=== PATIENT | female | born 1960 | race Hispanic/Latino ===

== ENCOUNTER → 2018-06-27 | Outpatient (CLI) | payer BC ==
[~2018-06-27] MED LIST: GADODIAMIDE 10 MMOL/20 ML ML IV ONE
== END | disposition home or self-care (01) ==
LOC: RAH 08:42
PROVIDERS: ATTEND Internal Medicine
DX: D35.02 Benign neoplasm of left adrenal gland (principal)
CPT/HCPCS: 74183; A9579

== ENCOUNTER → 2020-11-25 | Outpatient (CLI) | payer BC ==
[~2020-11-25] MED LIST changes: -GADODIAMIDE 10 MMOL/20 ML ML IV ONE; +GADOTERATE MEGLUMINE 10 MMOL/20 ML VIAL IV ONE
== END | disposition home or self-care (01) ==
LOC: RAH 09:07
PROVIDERS: ATTEND Internal Medicine
DX: D35.2 Benign neoplasm of pituitary gland (principal); D35.02 Benign neoplasm of left adrenal gland
CPT/HCPCS: 74183; A9575

== ENCOUNTER 2022-10-06 22:57 | Emergency (ER) | payer BC ==
[~2022-10-06] VITALS: Ht 157.5 cm; Wt 147.9 kg
[2022-10-07 00:47] LABS: BASOPHILS % (AUTO) 0.4 % (0.0-5.0); EOSINOPHILS % (AUTO) 2.4 % (0.0-8.0); HEMATOCRIT 39.3 % (36-48); LYMPHOCYTES % (AUTO) 23.4 % (21.0-51.0); MEAN CORPUSCULAR HEMOGLOBIN 30.1 pg (27.0-33.0); MEAN CORPUSCULAR HGB CONC 32.6 g/dL (32.0-36.0); MEAN CORPUSCULAR VOLUME 92.5 fL (79-99); MONOCYTES % (AUTO) 11.3 % (3.0-13.0); NEUTROPHILS % (AUTO) 62.1 % (40.0-77.0); PLATELET COUNT (AUTO) 181 K/uL (130-400); RED BLOOD CELL COUNT(AUTO) 4.25 MIL/uL (4.00-5.50); RED CELL DISTRIBUTION WIDTH 13.7 % (11.0-15.5); WHITE BLOOD COUNT (AUTO) 6.7 K/uL (4.8-10.8)
[2022-10-07 00:59] LABS: CREATININE 0.7 mg/dL (0.5-1.5); POTASSIUM 3.8 mmol/L (3.5-5.1); PROTHROMBIN TIME 10.9 SEC (9.6-11.6)
[2022-10-07 01:04] LABS: TOTAL PROTEIN, SERUM 6.8 g/dL (6.0-8.3)
[2022-10-07] MEDS ORDERED: CEFTRIAXONE 1G VIAL IVP ONE (01:30)
[2022-10-07 01:35] LABS: B-TYPE NATRIURETIC PEPTIDE 27 pg/mL (0-100)
[2022-10-07] MEDS ORDERED: CEFU500T67 PO (01:45)
[2022-10-07 03:12] VITALS: BP 120/64
== END 2022-10-07 03:13 | disposition home or self-care (01) ==
LOC: EDH 22:57
DX: L03.115 Cellulitis of right lower limb (principal); E78.00 Pure hypercholesterolemia, unspecified; Z79.899 Other long term (current) drug therapy
CPT/HCPCS: 99284; 96374; 93971; 84484; 80053; 83880; 85025; 85610; 36415; 93005; J0696

== ENCOUNTER → 2023-04-26 | Outpatient (CLI) | payer BC ==
[~2023-04-26] MED LIST changes: +CEFU500T67 PO; -GADOTERATE MEGLUMINE 10 MMOL/20 ML VIAL IV ONE
[2023-04-26 12:25] LABS: CREATININE 0.7 mg/dL (0.5-1.5)
== END | disposition home or self-care (01) ==
LOC: LAB 08:33
PROVIDERS: ATTEND Internal Medicine
DX: I10 Essential (primary) hypertension (principal)
CPT/HCPCS: 36415; 80048

== ENCOUNTER → 2023-05-18 | Outpatient (CLI) | payer BC ==
[~2023-05-18] MED LIST changes: +IOHEXOL 350 MG/ML 100ML INFUS..BTL IV ONE
== END | disposition home or self-care (01) ==
LOC: RAH 07:40
PROVIDERS: ATTEND Internal Medicine
DX: R94.31 Abnormal electrocardiogram [ECG] [EKG] (principal); I51.7 Cardiomegaly; M47.815 Spondylosis without myelopathy or radiculopathy, thoracolumbar region; R06.02 Shortness of breath
CPT/HCPCS: 75574; Q9967

== ENCOUNTER → 2023-05-30 | Outpatient (CLI) | payer BC ==
[~2023-05-30] MED LIST changes: -IOHEXOL 350 MG/ML 100ML INFUS..BTL IV ONE
== END | disposition home or self-care (01) ==
LOC: SHCH 14:30
PROVIDERS: ATTEND Internal Medicine
DX: I35.8 Other nonrheumatic aortic valve disorders (principal); I11.9 Hypertensive heart disease without heart failure; R06.02 Shortness of breath; E78.5 Hyperlipidemia, unspecified
CPT/HCPCS: 93306

== ENCOUNTER → 2023-07-15 | Outpatient (CLI) | payer BC | END | disposition home or self-care (01) | LOC: SHCH 07:37 | PROVIDERS: ATTEND Internal Medicine | DX: I87.2 Venous insufficiency (chronic) (peripheral) (principal) | CPT/HCPCS: 93970 ==

== ENCOUNTER → 2023-11-23 | Outpatient (CLI) | payer BC ==
[2023-11-23 12:07] LABS: BASOPHILS # (AUTO) 0.02 K/uL (0.00-0.20); BASOPHILS % (AUTO) 0.4 % (0.0-5.0); EOSINOPHILS # (AUTO) 0.21 K/uL (0.00-0.70); EOSINOPHILS % (AUTO) 4.7 % (0.0-8.0); HEMATOCRIT 42.5 % (36-48); IMMATURE GRANULOCYTE ABSOLUTE 0.01 K/uL (0-1); LYMPHOCYTES # (AUTO) 1.7 K/uL (1.0-4.8); LYMPHOCYTES % (AUTO) 38.6 % (21.0-51.0); MEAN CORPUSCULAR HEMOGLOBIN 31.8 pg (27.0-33.0); MEAN CORPUSCULAR HGB CONC 33.4 g/dL (32.0-36.0); MEAN CORPUSCULAR VOLUME 95.1 fL (79-99); MONOCYTES # (AUTO) 0.4 K/uL (0.1-1.0); MONOCYTES % (AUTO) 9.3 % (3.0-13.0); NEUTROPHILS # (AUTO) 2.1 K/uL (1.8-7.7); NEUTROPHILS % (AUTO) 46.8 % (40.0-77.0); PLATELET COUNT (AUTO) 169 K/uL (130-400); RED BLOOD CELL COUNT(AUTO) 4.47 MIL/uL (4.00-5.50); RED CELL DISTRIBUTION WIDTH 14.2 % (11.0-15.5); WHITE BLOOD COUNT (AUTO) 4.5 K/uL (4.8-10.8)
[2023-11-23 12:13] LABS: CREATININE 0.6 mg/dL (0.5-1.0); POTASSIUM 3.8 mmol/L (3.5-5.1)
[2023-11-23 12:22] LABS: INR 0.98 (0.85-1.15); PROTHROMBIN TIME 11.6 SEC (9.6-11.6)
[2023-11-23 12:23] LABS: PARTIAL THROMBOPLASTIN TIME 27.7 SEC (26.3-35.5)
== END | disposition home or self-care (01) ==
LOC: LAB 08:07
PROVIDERS: ATTEND Internal Medicine Cardiovascular Disease
DX: Z01.812 Encounter for preprocedural laboratory examination (principal); I87.1 Compression of vein; I87.2 Venous insufficiency (chronic) (peripheral)
CPT/HCPCS: 36415; 80048; 85025; 85610; 85730

== ENCOUNTER 2023-12-10 16:55 | Emergency (ER) | payer BC ==
[~2023-12-10] VITALS: Ht 154.9 cm; Wt 141.5 kg
[2023-12-10 18:11] LABS: BASOPHILS # (AUTO) 0.03 K/uL (0.00-0.20); BASOPHILS % (AUTO) 0.7 % (0.0-5.0); EOSINOPHILS # (AUTO) 0.17 K/uL (0.00-0.70); IMMATURE GRANULOCYTE ABSOLUTE 0.01 K/uL (0-1); LYMPHOCYTES # (AUTO) 1.6 K/uL (1.0-4.8); LYMPHOCYTES % (AUTO) 37.2 % (21.0-51.0); MEAN CORPUSCULAR HEMOGLOBIN 32.8 pg (27.0-33.0); MEAN CORPUSCULAR HGB CONC 33.8 g/dL (32.0-36.0); MEAN CORPUSCULAR VOLUME 96.8 fL (79-99); MONOCYTES # (AUTO) 0.5 K/uL (0.1-1.0); MONOCYTES % (AUTO) 10.5 % (3.0-13.0); NEUTROPHILS % (AUTO) 47.4 % (40.0-77.0); PLATELET COUNT (AUTO) 136 K/uL (130-400); RED BLOOD CELL COUNT(AUTO) 4.03 MIL/uL (4.00-5.50); RED CELL DISTRIBUTION WIDTH 14.1 % (11.0-15.5); WHITE BLOOD COUNT (AUTO) 4.3 K/uL (4.8-10.8)
[2023-12-10 18:34] LABS: ALBUMIN 2.9 g/dL (3.5-5.0); BILIRUBIN,TOTAL 1.3 mg/dL (0.2-1.0); CREATININE 0.7 mg/dL (0.5-1.0); POTASSIUM 4.3 mmol/L (3.5-5.1); TOTAL PROTEIN, SERUM 6.8 g/dL (6.0-8.3)
[2023-12-10 18:46] LABS: INR 0.96 (0.85-1.15); PROTHROMBIN TIME 11.4 SEC (9.6-11.6)
[2023-12-10 18:47] LABS: PARTIAL THROMBOPLASTIN TIME 27.3 SEC (26.3-35.5)
[2023-12-10 20:55] VITALS: BP 112/67; PULSE 69; RESP 16; O2SAT 99
== END 2023-12-10 21:07 | disposition home or self-care (01) ==
LOC: EDH 16:55
DX: S70.12XA Contusion of left thigh, initial encounter (principal); S30.1XXA Contusion of abdominal wall, initial encounter; E78.00 Pure hypercholesterolemia, unspecified; I10 Essential (primary) hypertension; X58.XXXA Exposure to other specified factors, initial encounter; Y93.89 Activity, other specified; Y92.89 Other specified places as the place of occurrence of the external cause; Y99.8 Other external cause status
CPT/HCPCS: 36415; 76882; 80053; 85025; 85610; 85730

== ENCOUNTER 2024-06-19 07:01 | Observation (INO) | payer BC ==
[2024-06-15 15:42] LABS: BASOPHILS # (AUTO) 0.03 K/uL (0.00-0.20); BASOPHILS % (AUTO) 0.7 % (0.0-5.0); EOSINOPHILS # (AUTO) 0.24 K/uL (0.00-0.70); EOSINOPHILS % (AUTO) 5.4 % (0.0-8.0); HEMATOCRIT 40.2 % (36-48); IMMATURE GRANULOCYTE ABSOLUTE 0.01 K/uL (0-1); LYMPHOCYTES # (AUTO) 1.4 K/uL (1.0-4.8); LYMPHOCYTES % (AUTO) 31.9 % (21.0-51.0); MEAN CORPUSCULAR HEMOGLOBIN 31.5 pg (27.0-33.0); MEAN CORPUSCULAR HGB CONC 33.1 g/dL (32.0-36.0); MEAN CORPUSCULAR VOLUME 95.3 fL (79-99); MONOCYTES # (AUTO) 0.5 K/uL (0.1-1.0); MONOCYTES % (AUTO) 10.6 % (3.0-13.0); NEUTROPHILS # (AUTO) 2.3 K/uL (1.8-7.7); NEUTROPHILS % (AUTO) 51.2 % (40.0-77.0); PLATELET COUNT (AUTO) 166 K/uL (130-400); RED BLOOD CELL COUNT(AUTO) 4.22 MIL/uL (4.00-5.50); RED CELL DISTRIBUTION WIDTH 14.1 % (11.0-15.5); WHITE BLOOD COUNT (AUTO) 4.4 K/uL (4.8-10.8)
[2024-06-15 15:54] LABS: CREATININE 0.6 mg/dL (0.5-1.0); POTASSIUM 3.8 mmol/L (3.5-5.1)
[2024-06-15 16:11] VITALS: BP 157/73; PULSE 58; RESP 16; TEMP 97.9
[2024-06-15 16:24] LABS: APPEARANCE,URINE CLEAR (CLEAR); BILIRUBIN,URINE NEGATIVE (NEGATIVE); COLOR,URINE YELLOW (YELLOW); GLUCOSE, URINE (UA) NEGATIVE (NEGATIVE); KETONES,URINE NEGATIVE (NEGATIVE); LEUKOCYTE ESTERASE ,URINE NEGATIVE Leu/uL (NEGATIVE); NITRATE,URINE NEGATIVE (NEGATIVE); OCCULT BLOOD,URINE NEGATIVE (NEGATIVE); PH,URINE 8.5 (5.0-8.0); PROTEIN,URINE NEGATIVE (NEGATIVE); UROBILINOGEN,URINE >=8.0 mg/dL (0.2-1.0)
[2024-06-15 16:26] LABS: ADD UA MICROSCOPIC NO
[2024-06-19] VITALS (27 sets, daily range): BP systolic 117–136; BP diastolic 57–84; PULSE 52–71; RESP 15–21; TEMP 97.4–98.4; O2SAT 97–99
[~2024-06-19] VITALS: Ht 157.5 cm; Wt 145.6 kg
[~2024-06-19 07:01] MED LIST changes: +ALBU18HF7 IH; -CEFU500T67 PO; +CETI10TA57 PO; +DICL100G60 TP; +FERR-82 PO; +FURO20TA4 PO; +MELO5CAP3 PO; +SIMV10TA97 PO; +STOOL SOFTENER PO
[2024-06-19] MEDS: ceFAZolin SODIUM 2 GM VIAL ONE (07:40)
[2024-06-19] MEDS: ceFAZolin SODIUM 1 GM VIAL ONE ×2 (07:40→11:10)
[2024-06-19] MEDS: LACTATED RINGERS 1000ML 1,000 ML IV ONE (07:40)
[2024-06-19] MEDS ORDERED: ASPI-1197 PO (07:45)
[2024-06-19] MEDS ORDERED: GLYCOPYRROLATE 0.2 MG/ML 5 ML VIAL ONE (08:52)
[2024-06-19] MEDS ORDERED: phenylEPHRINE HCL 10 MG/ML 1ML VIAL IV ONE (08:52)
[2024-06-19] MEDS ORDERED: proPOFol 10 MG/ML 20ML VIAL IV ONE (08:52)
[2024-06-19] MEDS ORDERED: NEOSTIGMINE METHYLSULFATE 1MG/ML IV ONE (08:52)
[2024-06-19] MEDS ORDERED: MIDAZOLAM HCL 1 MG/ML 2ML VIAL ONE (08:52)
[2024-06-19] MEDS ORDERED: ondanSETRON 4MG INJ ONE (08:52)
[2024-06-19] MEDS ORDERED: LIDOCAINE PF 100MG/5ML (2%) SYRINGE 5ML ONE (08:53)
[2024-06-19] MEDS ORDERED: FENTanyl CITRate PF 50 MCG/1 ML 2ML VIAL ONE ×2 (08:53→12:15)
[2024-06-19] MEDS ORDERED: rocuRONium bROMide 10MG/1ML 5ML VL ONE ×2 (08:53→11:14)
[2024-06-19] MEDS: TRANEXAMIC ACID 1000MG/10ML ONE (10:45)
[2024-06-19] MEDS ORDERED: VANCOMYCIN 1G/250ML KIT 250 ML IV ONE (11:03)
[2024-06-19] MEDS: VANCOMYCIN 1G VIAL TP ONE (11:10)
[2024-06-19] MEDS ORDERED: ePHEDrine SULFate 50 MG/ML AMPULE ONE (11:22)
[2024-06-19] MEDS ORDERED: PoTASSium chloRIDE 20MEQ ER 20 MEQ ERTAB PO PRN (13:00)
[2024-06-19] MEDS ORDERED: HYDROcodone/APAP 5/325 1 TAB TABLET PO PRN (13:00)
[2024-06-19] MEDS ORDERED: FERROUS FUMARATE 324 MG TABLET PO PRN (13:00)
[2024-06-19] MEDS ORDERED: DiphenhydrAMINE HCL 50 MG/ML VIAL IVP PRN (13:00)
[2024-06-19] MEDS ORDERED: CALCIUM CARB 500MG PO PRN (13:00)
[2024-06-19] MEDS ORDERED: ketOROlac 15MG/ML VIAL (15MG/ML) IV PRN (13:00)
[2024-06-19] MEDS: 0.9%NACL 1000ML 1,000 ML IV SCH (13:00)
[2024-06-19] MEDS ORDERED: PoTASSium chl 10% ELIXIR 20MEQ 20 MEQ/15 ML UDCUP PO PRN (13:00)
[2024-06-19] MEDS ORDERED: PoTASSium chloRIDE 20MEQ/100ML 100 ML IV PRN (13:00)
--- NOTE | 2024-06-19 13:03 | OP ---
Operative Note: DATE OF PROCEDURE: 06/19/24 SURGEON: BETHANY CASTRO MD FUEL BUYER: [CHAS YARBROUGH CFA] ANESTHESIA: [GENERAL ANESTHESIA PLUS REGIONAL BLOCK] ANESTHESIOLOGIST/FEATURE WRITER: [NETTIE DINERO CRNA] PREOPERATIVE DIAGNOSIS: [RIGHT KNEE OSTEOARTHRITIS] POSTOPERATIVE DIAGNOSIS: [RIGHT KNEE OSTEOARTHRITIS] IMPLANTS: [BIOMET VANGUARD. FEMUR SIZE 62.5 RIGHT PS. TIBIA SIZE 71 FIXED CRUCIATE. TIBIAL LINER SIZE 71/75 X 10. PATELLA SIZE 31 X 8, ASYMMETRIC.] PROCEDURE: [RIGHT TOTAL KNEE ARTHROPLASTY] ESTIMATED BLOOD LOSS: [100 ML] INDICATIONS: [THE PATIENT IS A 63-YEAR-OLD FEMALE, MORBIDLY OBESE WITH HISTORY OF PAIN TO THE RIGHT KNEE SECONDARY TO OSTEOARTHRITIS THAT HAS A LONGER RESPONDED TO CONSERVATIVE TREATMENT THE PATIENT HAS BEEN BROUGHT TO THE OPERATING ROOM FOR A RIGHT TOTAL KNEE ARTHROPLASTY. PROCEDURE UNDERSTOOD, RISKS, BENEFITS AND POSSIBLE COMPLICATIONS AND THE PATIENT AGREED SIGNED THE CONSENT FORM] DESCRIPTION OF PROCEDURE: [AFTER ADEQUATE GENERAL ANESTHESIA WAS ACHIEVED AND REGIONAL BLOCK OBTAINED THE RIGHT LOWER EXTREMITY WAS PREPPED AND DRAPED IN THE USUAL MANNER PREVIOUS PLACEMENT OF THE TOURNIQUET IN THE PROXIMAL THIGH. THE EXTREMITY WAS THEN ELEVATED AND EXSANGUINATED WITH AN ESMARCH BANDAGE AND THE TOURNIQUET INFLATED TO 250 MMHG THE ESMARCH BAND BEEN THEN REMOVED. WITH THE KNEE IN FLEXION A LONGITUDINAL INCISION WAS THEN MADE IN THE ANTERIOR ASPECT THROUGH THE SKIN FOLLOWED BY DISSECTION OF THE SUBCUTANEOUS TISSUE. MEDIAL TO THE TIBIAL TUBEROSITY WE PROCEEDED THEN TO INSERT A BONE INFUSION NEEDLE INTO THE PROXIMAL METAPHYSIS AND THEN 60 MM OF A MIXTURE OF SALINE WITH 500 MG OF VANCOMYCIN WAS INJECTED. THE NEEDLE WAS THEN REMOVED. A PARAMEDIAN APPROACH WAS THEN MADE WITH THE BOVIE CAUTERY CUTTING THROUGH THE QUADRICEPS TENDON, MEDIAL PATELLAR RETINACULUM AND PATELLAR TENDON RETINACULUM. THE RETROPATELLAR TENDON FAT WAS THEN EXCISED AND THE SOFT TISSUE ELEMENTS OF THE TIBIA WERE ELEVATED SUBPERIOSTEALLY AND RETRACTORS WERE APPLIED MEDIALLY AND LATERALLY . THE ANTERIOR AND POSTERIOR CRUCIATE LIGAMENTS WERE RESECTED. WITH THE USE OF A DRILL A STARTING HOLE WAS MADE IN THE DISTAL FEMUR ENTERING THE INTRAMEDULLARY CANAL AND THEN AFTER REMOVAL OF THE DRILL AN INTRAMEDULLARY GUIDE WAS INSERTED WITH A 5 DEGREE VALGUS BLOCK THAT TOUCHED THE DISTAL FEMUR AND TO THIS THE DISTAL FEMORAL CUTTING GUIDE WAS THEN APPLIED ANTERIORLY AND WAS SECURED TO THE DISTAL FEMUR WITH THE USE OF PINS. THE INTRAMEDULLARY GUIDE WAS THEN REMOVED AND WITH THE USE OF THE OSCILLATING SAW WE PROCEEDED TO RESECT THE DISTAL FEMUR REMOVING THE FRAGMENTS AND THE GUIDE. THE FEMORAL SIZER WAS THEN APPLIED DISTAL LY AND DRILL HOLES WERE MADE REMOVING THE SIZER AND THE 4-IN-1 CUTTING BLOCK WAS THEN INSERTED AND THE ANTERIOR, POSTERIOR AND CHAMFER CUTS WERE MADE REMOVING THE FRAGMENTS AND THE BLOCK. THE POSTERIOR CRUCIATE LIGAMENT RETRACTOR WAS THEN INSERTED POSTERIOR TO THE TIBIA AND THIS WAS BROUGHT FORWARD PROCEEDING THEN TO APPLY THE EXTERNAL TIBIAL ALIGNMENT GUIDE AND SECURED THE PROXIMAL CUTTING GUIDE TO THE TIBIA WITH THE USE OF PINS. WITH THE USE OF THE OSCILLATING SAW THE PROXIMAL CUT TO THE TIBIA TIBIA WAS MADE. THE BONE FRAGMENT WAS REMOVED AND THE TRIAL TIBIA PLATE WAS CHOSEN. AT THIS POINT THE MENISCI WERE REMOVED SHARPLY AND WITH THE USE OF THE CURVED OSTEOTOME THE POSTERIOR OSTEOPHYTES OF THE FEMUR WERE REMOVED. THE PS CUTTING GUIDE WAS THEN INSERTED AND THE INTERCONDYLAR CUT WAS MADE REMOVING THE FRAGMENT AND THE GUIDE. THE TRIAL COMPONENTS WERE THEN INSERTED AT THE FEMUR AND TIBIA WITH A TRIAL TIBIAL LINER BRINGING THE KNEE INTO EXTENSION NOTICING THAT THE PATIENT HAD A VERY STABLE KNEE IN FLEXION, EXTENSION AND WITH VALGUS AND VARUS STRESS. THE KNEE WAS MAINTAINED IN EXTENSION AND THE PATELLA WAS THEN ADDRESSED PROCEEDING TO MEASURE ITS THICKNESS AND THEN WITH THE USE OF THE OSCILLATING SAW WE REMOVED EIGHT MM FROM THE ARTICULAR SURFACE AND RESTORED THE HEIGHT WITH APPLICATION OF A TRIAL COMPONENT AFTER 3 PEG HOLES WERE MADE. THE PATELLOFEMORAL LIGAMENT WAS REMOVED AND THEN THE PATELLOFEMORAL TRACKING WAS CHECKED NOTICING TO BE NORMAL. AT THIS MOMENT ALL THE COMPONENTS WERE REMOVED, THE TIBIA AFTER THE METAPHYSEAL DEFECT WAS CREATED AND WHILE CEMENT WAS BEING MIXED ON THE BACK TABLE WE PROCEEDED TO IRRIGATE THE JOINT WITH ANTIBIOTIC SOLUTION AND THEN COVER THE ENTRY TO THE FEMORAL CANAL WITH A BONE PLUG. ONCE THE CEMENT WAS READY WE PROCEEDED TO APPLY IT FIRST TO THE TIBIA SURFACE INSERTING THE FINAL COMPONENT AND THEN TO THE FEMORAL SURFACE AND INSERTED THE FINAL COMPONENT REMOVING THE EXCESS CEMENT AND THEN APPLYING A TRIAL LINER BRINGING THE KNEE INTO EXTENSION FOR COMPRESSION. THEN WE PROCEEDED TO IRRIGATE THE PATELLA SURFACE AND DRIED IT APPLYING THEN BONE CEMENT AND THE FINAL PATELLAR COMPONENT WAS INSERTED AND WAS SECURED WITH APPLICATION OF A CLAMP. THE JOINT WAS IRRIGATED WITH A WARM DILUTED BETADINE SOLUTION WHILE THE CEMENT DRIED FOLLOWED BY IRRIGATION WITH ANTIBIOTIC SOLUTION. THE TRIAL LINER WAS REMOVED WELL THE PATELLAR CLAMP AND WE PROCEEDED THEN TO IRRIGATE THE POSTERIOR ASPECT OF THE JOINT TO REMOVE ALL THE REMAINING DEBRIS AND THE FINAL TIBIAL LINER WAS INSERTED AND LOCKED AGAINST THE TIBIA . THE RANGE OF MOTION WAS CHECKED AND NOTICED TO BE ADEQUATE WITH FULL EXTENSION AND FLEXION, NO LAXITY IN VALGUS OR VARUS STRESS AND WITH ADEQUATE PATELLOFEMORAL TRACKING. THE PATIENT HAD NO ANTERIOR OR POSTERIOR DRAWER. AFTER FURTHER IRRIGATION THE WOUND WAS THEN CLOSED WITH APPROXIMATION OF THE QUADRICEPS TENDON, PATELLAR RETINACULUM AND PATELLAR TENDON RETINACULUM WITH #1 VICRYL CLOSE STITCHES ALTERNATING WITH #1 ETHIBOND STITCHES. THE TOURNIQUET WAS THEN DEFLATED AND THIS WAS FOLLOWED BY HEMOSTASIS AND CLOSURE OF THE SUBCUTANEOUS TISSUE WITH 2-0 MONOCRYL INVERTED STITCHES AND THE SKIN WAS CLOSED WITH 3-0 MONOCRYL SUBCUTICULARLY. THE WOUND WAS COVERED WITH A SUCTION DRESSING FOLLOWED BY APPLICATION OF AN GILMAR BANDAGE FOR COMPRESSION AND THE DRAPES WERE THEN REMOVED TRANSFERRING THE PATIENT TO THE HOSPITAL BED AND TAKEN TO RECOVERY ROOM FOR FOLLOW-UP BY ANESTHESIA. THERE WERE NO COMPLICATIONS DURING THE PROCEDURE.] BETHANY CASTRO MD Jun 19, 2024 13:03
[2024-06-19] MEDS: MEPERIDINE-PF 25 MG/ML SYG ONE (13:54)
[2024-06-19] MEDS: acetaMINOPHEN 100 ML ONE (14:03)
[2024-06-19] MEDS: ondanSETRON 4MG INJ IVP PRN (16:47)
[2024-06-19] MEDS: ceFAZolin SODIUM 2 GM VIAL IVP SCH (18:03)
[2024-06-19] MEDS: HYDROcodone/APAP 5/325 1 TAB TABLET PO PRN (18:42)
[2024-06-19] MEDS: FAMOTIDINE 20MG TAB PO SCH (21:26)
[2024-06-19] MEDS: furoSEMIDE 20 MG TABLET PO SCH (21:26)
[2024-06-19] MEDS: FERROUS SULFATE 325 MG TABLET.DR PO SCH (21:26)
[2024-06-19] MEDS: simVASTatin 10 MG TABLET PO SCH (21:26)
[2024-06-19] MEDS: ALBUTEROL SULFATE IH PRN (21:28)
[2024-06-20] VITALS: BP 117/51; PULSE 67; RESP 19; TEMP 98.6
[2024-06-20] MEDS: HYDROcodone/APAP 5/325 1 TAB TABLET PO PRN (03:54)
[2024-06-20 04:00] VITALS: BP 118/55; PULSE 55; RESP 16; TEMP 98.2
[2024-06-20 05:42] LABS: HEMATOCRIT 37.7 % (36-48); MEAN CORPUSCULAR HEMOGLOBIN 30.4 pg (27.0-33.0); MEAN CORPUSCULAR HGB CONC 32.1 g/dL (32.0-36.0); MEAN CORPUSCULAR VOLUME 94.7 fL (79-99); RED BLOOD CELL COUNT(AUTO) 3.98 MIL/uL (4.00-5.50); RED CELL DISTRIBUTION WIDTH 13.9 % (11.0-15.5); WHITE BLOOD COUNT (AUTO) 7.2 K/uL (4.8-10.8)
[2024-06-20 07:30] VITALS: BP 131/45; PULSE 61; RESP 20; TEMP 98
--- NOTE | 2024-06-20 07:49 | PN ---
Ortho postop day one. Patient is out of bed seated in a chair. Reports adequate pain control. Vital signs stable. Afebrile. Voiding on her own without difficulty. Laboratory results reviewed. Performing incentive spirometry as instructed. Tello dressing intact. Operative findings discussed with the patient. Pending physical therapy this morning. Anticipated discharge goal is home health/PT preferably [facility]. Assessment: Status post right total knee arthroplasty. Plan: Continue with Dr. Venegas TKA protocol and discharge planning. Vitals/Labs Vital Signs Date Time Temp Pulse Resp B/P (MAP) Pulse Ox O2 Delivery O2 Flow Rate FiO2 06/20/24 04:00 98.2 55 16 118/55 99 06/19/24 20:25 Nasal Cannula 2.0 24 Laboratory Tests 06/20/24 04:40 Medications Current Medications Cefazolin Sodium 1 gm STK-MED ONCE .ROUTE Last administered on 06/19/24at 10:39; Start 06/19/24 at 06:50; Stop 06/19/24 at 06:50; Status DC Cefazolin Sodium 2 gm STK-MED ONCE .ROUTE Last administered on 06/19/24at 10:39; Start 06/19/24 at 06:50; Stop 06/19/24 at 06:50; Status DC Lactated Ringer's 1,000 ml @ As Directed STK-MED ONCE IV Last administered on 06/19/24at 07:40; Start 06/19/24 at 06:50; Stop 06/19/24 at 06:50; Status DC Cefazolin Sodium 1 gm STK-MED ONCE .ROUTE Last administered on 06/19/24at 11:10; Start 06/19/24 at 07:43; Stop 06/19/24 at 07:43; Status DC Tranexamic Acid 1,000 mg STK-MED ONCE .ROUTE Last administered on 06/19/24at 10:45; Start 06/19/24 at 07:44; Stop 06/19/24 at 07:44; Status DC Glycopyrrolate 1 mg STK-MED ONCE .ROUTE; Start 06/19/24 at 08:52; Stop 06/19/24 at 08:52; Status DC Midazolam HCl 2 mg STK-MED ONCE .ROUTE; Start 06/19/24 at 08:52; Stop 06/19/24 at 08:52; Status DC Propofol 200 mg STK-MED ONCE IV; Start 06/19/24 at 08:52; Stop 06/19/24 at 08:52; Status DC Neostigmine Methylsulfate 10 mg STK-MED ONCE IV; Start 06/19/24 at 08:52; Stop 06/19/24 at 08:52; Status DC Phenylephrine HCl 10 mg STK-MED ONCE IV; Start 06/19/24 at 08:52; Stop 06/19/24 at 08:53; Status DC Ondansetron HCl 4 mg STK-MED ONCE .ROUTE; Start 06/19/24 at 08:52; Stop 06/19/24 at 08:53; Status DC Rocuronium [place] 50 mg STK-MED ONCE .ROUTE; Start 06/19/24 at 08:53; Stop 06/19/24 at 08:53; Status DC Fentanyl Citrate 100 mcg STK-MED ONCE .ROUTE; Start 06/19/24 at 08:53; Stop 06/19/24 at 08:53; Status DC Lidocaine HCl 100 mg STK-MED ONCE .ROUTE; Start 06/19/24 at 08:53; Stop 06/19/24 at 08:54; Status DC Vancomycin HCl 250 ml @ As Directed STK-MED ONCE IV; Start 06/19/24 at 11:03; Stop 06/19/24 at 11:04; Status DC Rocuronium [place] 50 mg STK-MED ONCE .ROUTE; Start 06/19/24 at 11:14; Stop 06/19/24 at 11:14; Status DC Ephedrine Sulfate 50 mg STK-MED ONCE .ROUTE; Start 06/19/24 at 11:22; Stop 06/19/24 at 11:22; Status DC Vancomycin HCl 1 gm STK-MED ONCE TP Last administered on 06/19/24at 11:10; Start 06/19/24 at 11:10; Stop 06/19/24 at 11:42; Status DC Fentanyl Citrate 100 mcg STK-MED ONCE .ROUTE; Start 06/19/24 at 12:15; Stop 06/19/24 at 12:15; Status DC Sodium Chloride 1,000 ml @ 100 mls/hr Q10H IV Last administered on 06/19/24at 13:00; Start 06/19/24 at 13:00; Stop 06/20/24 at 12:59 Polyethylene Glycol 17 gm DAILY PO; Start 06/20/24 at 09:00; Stop 07/20/24 at 08:59 Bisacodyl 10 mg DAILY PRN RC; Start 06/22/24 at 13:00; Stop 07/22/24 at 12:59 Ketorolac Tromethamine 15 mg Q6H PRN IV; Start 06/19/24 at 13:00; Stop 06/24/24 at 12:59 Famotidine 20 mg BID PO Last administered on 06/19/24at 21:26; Start 06/19/24 at 21:00; Stop 07/19/24 at 20:59 Ferrous Fumarate 324 mg DAILY PRN PO; Start 06/19/24 at 13:00; Stop 07/19/24 at 12:59 Ondansetron HCl 4 mg Q6H PRN IVP Last administered on 06/19/24at 16:47; Start 06/19/24 at 13:00; Stop 07/19/24 at 12:59 Calcium Carbonate 500 mg Q12H PRN PO; Start 06/19/24 at 13:00; Stop 07/19/24 at 12:59 Diphenhydramine HCl 25 mg Q6H PRN IVP; Start 06/19/24 at 13:00; Stop 07/19/24 at 12:59 Cefazolin Sodium 2 gm Q8H IVP Last administered on 06/20/24at 02:49; Start 06/19/24 at 18:00; Stop 06/20/24 at 02:01; Status DC Potassium Chloride 100 ml @ 100 mls/hr AD PRN IV; Start 06/19/24 at 13:00; Stop 07/19/24 at 12:59 Potassium Chloride 20 meq AD PRN PO; Start 06/19/24 at 13:00; Stop 07/19/24 at 12:59 Potassium Chloride 20 meq AD PRN PO; Start 06/19/24 at 13:00; Stop 07/19/24 at 12:59 Acetaminophen/ Hydrocodone Bitart Q4H PRN PO; Start 06/19/24 at 13:00; Stop 06/19/24 at 13:05; Status DC Apixaban 2.5 mg BID PO; Start 06/20/24 at 09:00; Stop 07/20/24 at 08:59 Acetaminophen/ Hydrocodone Bitart 1 tab Q4H PRN PO Last administered on 06/19/24at 18:42; Start 06/19/24 at 13:30; Stop 06/24/24 at 13:29 Acetaminophen/ Hydrocodone Bitart 2 tab Q4H PRN PO Last administered on 06/20/24at 03:54; Start 06/19/24 at 13:30; Stop 06/24/24 at 13:29 Meperidine HCl 25 mg STK-MED ONCE .ROUTE Last administered on 06/19/24at 13:54; Start 06/19/24 at 13:51; Stop 06/19/24 at 13:52; Status DC Acetaminophen 100 ml @ As Directed STK-MED ONCE .ROUTE Last administered on 06/19/24at 14:03; Start 06/19/24 at 13:59; Stop 06/19/24 at 13:59; Status DC Furosemide 20 mg BID PO Last administered on 06/19/24at 21:26; Start 06/19/24 at 21:00; Stop 07/19/24 at 20:59 Simvastatin 10 mg HS PO Last administered on 06/19/24at 21:26; Start 06/19/24 at 21:00; Stop 07/19/24 at 20:59 Home Med Albuterol Sulfate (Adam... TID PRN IH; Start 06/19/24 at 16:30; Stop 07/19/24 at 16:29 Cetirizine HCl 10 mg DAILY PO; Start 06/20/24 at 09:00; Stop 07/20/24 at 08:59 Ferrous Sulfate 325 mg HS PO Last administered on 06/19/24at 21:26; Start 06/19/24 at 21:00; Stop 07/19/24 at 20:59 IONA BROWNE NP Jun 20, 2024 07:49
[2024-06-20 09:00] VITALS: O2SAT 97
[2024-06-20] MEDS: polyETHYLene GLYCol 3350 17 GM POWD.PACK PO SCH (09:06)
[2024-06-20] MEDS: ceTIRIzine HCL 5 MG TABLET PO SCH (09:06)
[2024-06-20] MEDS: APIXaban 2.5 MG TABLET PO SCH (09:07)
[2024-06-20 11:30] VITALS: BP 124/55; PULSE 57; RESP 20; TEMP 98.4
--- NOTE | 2024-06-20 12:50 | NUR ---
[facility] CM MET WITH PT AND SISTER THIS MORNING ASSESSMENT DONE. PT IS INDEPENDENT PRIOR TO SURGERY, SISTER AND NEPHEW LIVES WITH PT AT HOME. PATIENT HAS A WALKER, WHEELCHAIR, SHOWER CHAIR, RAISED TOILET, RAMP OUTSIDE HOUSE, GRAB BARS IN THE SHOWER & HALLWAYS WELL INSIDE HOUSE ENTRANCE FROM TX AREA TO DINING ROOM. PT ALSO HAS A CPAP AND NEBULIZER MACHINE. FEELS SAFE TO GO BACK HOME, STILL DRIVE, SISTER ABLE TO ASSIST WITH TRANSPORTATION AND NEEDS NECESSARY. DISCUSSED MD RECOMMENDATIONS FOR HOME W/HH FOR PT. PT AGREEABLE, CONSENT [facility] HOME W/HH ONCE APPROVED. CM SENT ORDER, CLINICALS, PT TO [facility] VIA SECURE EMAIL. PENDING REP RESPONSE. PT PENDING APPROVAL. PRIMARY NURSE MONICA FONTANA. DR CASTRO UPDATED. CM TO CONTINUE TO FOLLOWUP. Addendum: 06/20/24 at 1253 by CHUCK ATWOOD LVN CM Amended: Links added.
--- NOTE | 2024-06-20 12:55 | NUR ---
ORTHO COORDINATOR: TEACHING REGARDING DVT AND PNEUMONIA PREVENTION, PAIN EXPECTATIONS AND PAIN MANAGEMENT. PATIENT UP TO CHAIR. SISTER AT BEDSIDE. INCENTIVE SPIROMETER ON BEDSIDE TABLE, SCD'S IN ROOM WITH SCD MACHINE. PATIENT DEMONSTRATED PROPER USE OF INCENTIVE SPIROMETER. REQUESTED SHE PERFORM 10 TIMES EVERY HOUR. PATIENT VERBALIZED UNDERSTANDING. PATIENT RETURN DEMONSTRATED PROPER FOOT FLEXION AND EXTENSION EXERCISE. REVIEWED PAIN SCALE AND REINFORCED PAIN MEDICATION WILL BE GIVEN NEEDED. ENCOURAGED PATIENT TO USE THE NUMERIC PAIN SCALE. DISCUSSED THE IMPORTANCE OF PREMEDICATING PRIOR TO PHYSICAL THERAPY, PATIENT VERBALIZED UNDERSTANDING. NO ADDITIONAL QUESTIONS/CONCERNS. PATIENT DESIRES TO HAVE HOME HEALTH PHYSICAL THERAPY.
--- NOTE | 2024-06-20 13:00 | NUR ---
K[facility] NOTE: [facility] APPROVAL CM SPOKE TO TYRON Vaz/[facility], PT HAS APPROVAL. PRIMARY NURSE MONICA MADE AWARE. DR CASTRO UPDATED. CM TO CONTINUE TO FOLLOW UP. Addendum: 06/20/24 at 1301 by CHUCK ATWOOD LVN CM Amended: Links added.
[2024-06-20] MEDS ORDERED: APIX2.5T PO (13:50)
[2024-06-20] MEDS ORDERED: HYDR-4060 PO (13:50)
[2024-06-20 15:15] VITALS: BP 129/63; PULSE 58; RESP 20; TEMP 98.2
[2024-06-20] MEDS: BisaCODYL 10 MG SUPP.RECT RC ONE (15:30)
[2024-06-22] MEDS ORDERED: BisaCODYL 10 MG SUPP.RECT RC PRN (13:00)
== END 2024-06-20 19:00 | disposition home or self-care (01) ==
LOC: DAH 07:01 → DAHIP 07:02 → 4DH 15:25
PROVIDERS: ADMIT Orthopaedic Surgery; ATTEND Orthopaedic Surgery
DX: M17.11 Unilateral primary osteoarthritis, right knee (principal); M25.561 Pain in right knee; Z98.890 Other specified postprocedural states; Z79.899 Other long term (current) drug therapy
CPT/HCPCS: 80048; 85025; 87086; 81003; 36415 ×2; 87641; 27447; 64447; 96365; 96375; 82948; 88311; 88305; 97161; 97530 ×3; 96366; 85027; 97116 ×2; G0378 ×27; A4663; J7120 ×2; A4649 ×3; J3370 ×2; J3010 ×2; J0690 ×5; J3490 ×4; J2003; J2250; J2704; J2405 ×2; J2710; J2175; J2371; A9272; A4930; C1713; C1776; A4215; A4223 ×2; A4222; A4221; A4216

== ENCOUNTER → 2024-10-25 | Outpatient (CLI) | payer BC ==
[~2024-10-25] MED LIST changes: +APIX2.5T PO; +HYDR-4060 PO; +LIDOCAINE HCL 4% LTA SOL 4 ML VIAL TP ONE; -MELO5CAP3 PO
== END | disposition home or self-care (01) ==
LOC: WHH 08:08
PROVIDERS: ATTEND Family Medicine
DX: S81.001A Unspecified open wound, right knee, initial encounter (principal); E78.5 Hyperlipidemia, unspecified; E66.01 Morbid (severe) obesity due to excess calories; G47.33 Obstructive sleep apnea (adult) (pediatric); Z86.73 Personal history of transient ischemic attack (TIA), and cerebral infarction without residual deficits; W19.XXXA Unspecified fall, initial encounter; Y93.89 Activity, other specified; Y92.89 Other specified places as the place of occurrence of the external cause; Y99.8 Other external cause status
CPT/HCPCS: 99215; A4450

== ENCOUNTER → 2024-11-01 | Outpatient (CLI) | payer BC ==
[~2024-11-01] MED LIST changes: -LIDOCAINE HCL 4% LTA SOL 4 ML VIAL TP ONE
== END | disposition home or self-care (01) ==
LOC: WHH 08:55
PROVIDERS: ATTEND Family Medicine
DX: S81.001D Unspecified open wound, right knee, subsequent encounter (principal); E78.5 Hyperlipidemia, unspecified; E66.01 Morbid (severe) obesity due to excess calories; G47.33 Obstructive sleep apnea (adult) (pediatric); Z68.43 Body mass index [BMI] 50.0-59.9, adult; Z86.73 Personal history of transient ischemic attack (TIA), and cerebral infarction without residual deficits; X58.XXXD Exposure to other specified factors, subsequent encounter
CPT/HCPCS: 10140; A6260

== ENCOUNTER → 2024-11-06 | Outpatient (CLI) | payer BC | END | disposition home or self-care (01) | LOC: WHH 09:23 | PROVIDERS: ATTEND Family Medicine | DX: S81.001D Unspecified open wound, right knee, subsequent encounter (principal); E78.5 Hyperlipidemia, unspecified; E66.01 Morbid (severe) obesity due to excess calories; G47.33 Obstructive sleep apnea (adult) (pediatric); Z68.43 Body mass index [BMI] 50.0-59.9, adult; Z86.73 Personal history of transient ischemic attack (TIA), and cerebral infarction without residual deficits; X58.XXXD Exposure to other specified factors, subsequent encounter | CPT/HCPCS: 99211; A6197 ×2; G0463 ==

== ENCOUNTER → 2024-11-13 | Outpatient (CLI) | payer BC | END | disposition home or self-care (01) | LOC: WHH 09:49 | PROVIDERS: ATTEND Family Medicine | DX: S81.001D Unspecified open wound, right knee, subsequent encounter (principal); E78.5 Hyperlipidemia, unspecified; G47.33 Obstructive sleep apnea (adult) (pediatric); E66.01 Morbid (severe) obesity due to excess calories; Z68.43 Body mass index [BMI] 50.0-59.9, adult; Z86.73 Personal history of transient ischemic attack (TIA), and cerebral infarction without residual deficits; X58.XXXD Exposure to other specified factors, subsequent encounter | CPT/HCPCS: 99211; A6253; A6197; G0463 ==

== ENCOUNTER → 2024-11-14 | Outpatient (CLI) | payer BC | END | disposition home or self-care (01) | LOC: WHH 10:21 | PROVIDERS: ATTEND Family Medicine | DX: S81.001D Unspecified open wound, right knee, subsequent encounter (principal); E78.5 Hyperlipidemia, unspecified; E66.01 Morbid (severe) obesity due to excess calories; G47.33 Obstructive sleep apnea (adult) (pediatric); Z68.43 Body mass index [BMI] 50.0-59.9, adult; Z86.73 Personal history of transient ischemic attack (TIA), and cerebral infarction without residual deficits; X58.XXXD Exposure to other specified factors, subsequent encounter | CPT/HCPCS: 99211; A6197; G0463 ==

== ENCOUNTER → 2024-11-15 | Outpatient (CLI) | payer BC ==
[~2024-11-15] MED LIST changes: +LIDOCAINE HCL 4% LTA SOL 4 ML VIAL TP ONE
== END | disposition home or self-care (01) ==
LOC: WHH 09:54
PROVIDERS: ATTEND Family Medicine
DX: S81.001D Unspecified open wound, right knee, subsequent encounter (principal); E78.5 Hyperlipidemia, unspecified; E66.01 Morbid (severe) obesity due to excess calories; G47.33 Obstructive sleep apnea (adult) (pediatric); Z68.43 Body mass index [BMI] 50.0-59.9, adult; Z86.73 Personal history of transient ischemic attack (TIA), and cerebral infarction without residual deficits; X58.XXXD Exposure to other specified factors, subsequent encounter
CPT/HCPCS: 99214; A6197 ×3

== ENCOUNTER → 2024-11-19 | Outpatient (CLI) | payer BC | END | disposition home or self-care (01) | LOC: WHH 10:44 | PROVIDERS: ATTEND Family Medicine | DX: S81.001D Unspecified open wound, right knee, subsequent encounter (principal); T81.89XA Other complications of procedures, not elsewhere classified, initial encounter; E78.5 Hyperlipidemia, unspecified; E66.01 Morbid (severe) obesity due to excess calories; G47.33 Obstructive sleep apnea (adult) (pediatric); G51.0 Bell's palsy; Z68.43 Body mass index [BMI] 50.0-59.9, adult; Z86.73 Personal history of transient ischemic attack (TIA), and cerebral infarction without residual deficits; Z79.899 Other long term (current) drug therapy; W19.XXXD Unspecified fall, subsequent encounter; Y83.8 Other surgical procedures as the cause of abnormal reaction of the patient, or of later complication, without mention of misadventure at the time of the procedure; Y92.238 Other place in hospital as the place of occurrence of the external cause | CPT/HCPCS: 87070; 87086; 87186; 99214 ==

== ENCOUNTER → 2024-11-26 | Outpatient (CLI) | payer BC ==
[~2024-11-26] MED LIST changes: -LIDOCAINE HCL 4% LTA SOL 4 ML VIAL TP ONE
[2024-11-26 11:07] LABS: BASOPHILS # (AUTO) 0.02 K/uL (0.00-0.20); BASOPHILS % (AUTO) 0.6 % (0.0-5.0); EOSINOPHILS # (AUTO) 0.16 K/uL (0.00-0.70); EOSINOPHILS % (AUTO) 4.6 % (0.0-8.0); HEMATOCRIT 38.8 % (36-48); IMMATURE GRANULOCYTE ABSOLUTE 0.01 K/uL (0-1); LYMPHOCYTES # (AUTO) 1.1 K/uL (1.0-4.8); LYMPHOCYTES % (AUTO) 31.5 % (21.0-51.0); MEAN CORPUSCULAR HEMOGLOBIN 30.7 pg (27.0-33.0); MEAN CORPUSCULAR HGB CONC 31.7 g/dL (32.0-36.0); MEAN CORPUSCULAR VOLUME 96.8 fL (79-99); MONOCYTES # (AUTO) 0.4 K/uL (0.1-1.0); MONOCYTES % (AUTO) 10.6 % (3.0-13.0); NEUTROPHILS # (AUTO) 1.8 K/uL (1.8-7.7); NEUTROPHILS % (AUTO) 52.4 % (40.0-77.0); PLATELET COUNT (AUTO) 189 K/uL (130-400); RED BLOOD CELL COUNT(AUTO) 4.01 MIL/uL (4.00-5.50); RED CELL DISTRIBUTION WIDTH 14.3 % (11.0-15.5); WHITE BLOOD COUNT (AUTO) 3.5 K/uL (4.8-10.8)
== END | disposition home or self-care (01) ==
LOC: WHH 09:22
PROVIDERS: ATTEND Family Medicine
DX: T81.89XD Other complications of procedures, not elsewhere classified, subsequent encounter (principal); S81.001D Unspecified open wound, right knee, subsequent encounter; E78.5 Hyperlipidemia, unspecified; E66.01 Morbid (severe) obesity due to excess calories; G47.33 Obstructive sleep apnea (adult) (pediatric); G51.0 Bell's palsy; Z68.43 Body mass index [BMI] 50.0-59.9, adult; Z86.73 Personal history of transient ischemic attack (TIA), and cerebral infarction without residual deficits; Z79.899 Other long term (current) drug therapy; W19.XXXD Unspecified fall, subsequent encounter; Y83.8 Other surgical procedures as the cause of abnormal reaction of the patient, or of later complication, without mention of misadventure at the time of the procedure
CPT/HCPCS: 36415; 85025; 99214

== ENCOUNTER → 2024-12-06 | Outpatient (CLI) | payer BC | END | disposition home or self-care (01) | LOC: WHH 09:30 | PROVIDERS: ATTEND Family Medicine | DX: T81.89XD Other complications of procedures, not elsewhere classified, subsequent encounter (principal); S81.001D Unspecified open wound, right knee, subsequent encounter; E78.5 Hyperlipidemia, unspecified; E66.01 Morbid (severe) obesity due to excess calories; G47.33 Obstructive sleep apnea (adult) (pediatric); G51.0 Bell's palsy; Z68.43 Body mass index [BMI] 50.0-59.9, adult; Z79.899 Other long term (current) drug therapy; Z86.73 Personal history of transient ischemic attack (TIA), and cerebral infarction without residual deficits; W19.XXXD Unspecified fall, subsequent encounter; Y83.8 Other surgical procedures as the cause of abnormal reaction of the patient, or of later complication, without mention of misadventure at the time of the procedure | CPT/HCPCS: 99214 ==

== ENCOUNTER → 2024-12-13 | Outpatient (CLI) | payer BC | END | disposition home or self-care (01) | LOC: WHH 08:23 | PROVIDERS: ATTEND Family Medicine | DX: T81.89XD Other complications of procedures, not elsewhere classified, subsequent encounter (principal); S81.001D Unspecified open wound, right knee, subsequent encounter; E78.5 Hyperlipidemia, unspecified; E66.01 Morbid (severe) obesity due to excess calories; G47.33 Obstructive sleep apnea (adult) (pediatric); G51.0 Bell's palsy; Z68.43 Body mass index [BMI] 50.0-59.9, adult; Z79.899 Other long term (current) drug therapy; Z86.73 Personal history of transient ischemic attack (TIA), and cerebral infarction without residual deficits; W19.XXXD Unspecified fall, subsequent encounter; Y83.8 Other surgical procedures as the cause of abnormal reaction of the patient, or of later complication, without mention of misadventure at the time of the procedure | CPT/HCPCS: 99214; A4450 ==

== ENCOUNTER → 2024-12-27 | Outpatient (CLI) | payer BC | END | disposition home or self-care (01) | LOC: WHH 08:41 | PROVIDERS: ATTEND Family Medicine | DX: T81.89XD Other complications of procedures, not elsewhere classified, subsequent encounter (principal); S81.001D Unspecified open wound, right knee, subsequent encounter; I89.0 Lymphedema, not elsewhere classified; E78.5 Hyperlipidemia, unspecified; E66.01 Morbid (severe) obesity due to excess calories; G47.33 Obstructive sleep apnea (adult) (pediatric); G51.0 Bell's palsy; Z68.43 Body mass index [BMI] 50.0-59.9, adult; Z79.899 Other long term (current) drug therapy; Z86.73 Personal history of transient ischemic attack (TIA), and cerebral infarction without residual deficits; W19.XXXD Unspecified fall, subsequent encounter; Y83.8 Other surgical procedures as the cause of abnormal reaction of the patient, or of later complication, without mention of misadventure at the time of the procedure | CPT/HCPCS: 99213 ==

== ENCOUNTER 2025-01-03 08:49 | Outpatient (CLI) | payer BC | END 2025-01-03 12:14 | disposition home or self-care (01) | LOC: WHH 08:49 | PROVIDERS: ATTEND Family Medicine | DX: T81.89XD Other complications of procedures, not elsewhere classified, subsequent encounter (principal); S81.001D Unspecified open wound, right knee, subsequent encounter; I89.0 Lymphedema, not elsewhere classified; E78.5 Hyperlipidemia, unspecified; E66.01 Morbid (severe) obesity due to excess calories; G47.33 Obstructive sleep apnea (adult) (pediatric); G51.0 Bell's palsy; Z68.43 Body mass index [BMI] 50.0-59.9, adult; Z79.899 Other long term (current) drug therapy; Z86.73 Personal history of transient ischemic attack (TIA), and cerebral infarction without residual deficits; W19.XXXD Unspecified fall, subsequent encounter; Y83.8 Other surgical procedures as the cause of abnormal reaction of the patient, or of later complication, without mention of misadventure at the time of the procedure | CPT/HCPCS: 99214 ==

== ENCOUNTER → 2025-07-02 | Outpatient (CLI) | payer BC ==
--- NOTE | 2025-07-02 21:11 | HMCIMG ---
EXAM Abdominal Ultrasound with Hepatic Doppler HISTORY Liver disease unspecified. COMPARISON None. TECHNIQUE Grayscale ultrasound evaluation of the abdomen was performed. Color and spectral Doppler interrogation of the hepatic vasculature was also obtained. The examination is technically limited. FINDINGS LIVER The liver measures approximately 14.0 cm in craniocaudal dimension and is mildly enlarged. Hepatic echotexture is diffusely increased, consistent with hepatic steatosis. Visualization of the left hepatic lobe is limited due to large body habitus and overlying bowel gas. No focal hepatic lesion is identified within the visualized portions of the liver. GALLBLADDER The gallbladder is partially visualized and evaluation is limited due to large body habitus and increased bowel gas. The visualized gallbladder wall measures approximately 3 mm in thickness. No definite gallstones or pericholecystic fluid are identified within the limits of the examination. BILIARY TREE The common bile duct is obscured by overlying bowel gas and cannot be adequately evaluated. No intrahepatic biliary ductal dilatation is identified within the visualized portions of the liver. PANCREAS The pancreas is poorly visualized due to overlying bowel gas. SPLEEN The spleen is normal measuring 11.5 cm. KIDNEYS Right kidney measures 11.8 x 6.5 x 5.7 cm. Left kidney measures 11.4 x 5.9 x 4.7 cm. The visualized kidneys demonstrate normal size and echogenicity without hydronephrosis or renal calculi. The left adrenal nodule is not visualized on the current examination due to overlying bowel gas. AORTA AND IVC The abdominal aorta is obscured by overlying bowel gas and cannot be adequately evaluated. The inferior vena cava is visualized and appears normal in caliber. ASCITES No free intraperitoneal fluid is identified within the limits of the examination. HEPATIC DOPPLER The main portal vein is patent with normal hepatopetal flow mesuring 1.1 cm. The right and left portal veins are patent where visualized. Portal vein velocity 22 cm/sec. The hepatic artery 82 cm/sec is patent with normal arterial waveform and resistive index of 0.8 within normal limits. No sonographic evidence of portal vein thrombosis is identified. LHV 26 cm/sec, MHV 20 cm/sec and RHV 52 cm/sec. No sonographic evidence of splenic vein thrombosis is identified. Spenic vein flow direction is within normal limits. Spenic vein velocity 52 cm/sec. IMPRESSION * Very limited abdominal Doppler ultrasound examination due to large body habitus and increased bowel gas, with limited visualization of the left hepatic lobe, gallbladder, common bile duct, and abdominal aorta. * Mild hepatomegaly with diffuse hepatic steatosis within the visualized portions of the liver. * Partially visualized gallbladder with wall thickness measuring approximately 3 mm and no definite sonographic evidence of acute cholecystitis within the limits of the examination. * Normal hepatic Doppler evaluation without sonographic evidence of portal vein or splenic vein thrombosis. * Left adrenal nodule not visualized on the current study due to technical limitations. RECOMMENDATIONS If there is persistent clinical concern for biliary obstruction, gallbladder pathology, vascular disease, adrenal disease, or diffuse liver disease, further evaluation with contrast enhanced CT or MRI of the abdomen is recommended for more comprehensive assessment in accordance with ACR Appropriateness Criteria. /Cyndy
== END ==
LOC: RAH 07:38
PROVIDERS: ATTEND Internal Medicine Gastroenterology
DX: K76.0 Fatty (change of) liver, not elsewhere classified (principal); K76.9 Liver disease, unspecified; R74.8 Abnormal levels of other serum enzymes; R74.01 Elevation of levels of liver transaminase levels; E80.7 Disorder of bilirubin metabolism, unspecified; R16.0 Hepatomegaly, not elsewhere classified
CPT/HCPCS: 76700; 93975